=== PATIENT | female | born 1945 | race Caucasian/White ===

== ENCOUNTER → 2016-07-24 | Outpatient (CLI) | payer MEDICARE, OTHER ==
[~2016-07-24] MED LIST: ANTIHISTAMINE25 MG PO; ARTHROTEC PO; ASPIR-LOW81 MG PO; ASPIRIN 32325 MG/TAB PO; ASPIRIN E.C. 8181 MG PO; BYSTOLIC5 MG PO; CINNAMON PO; COREG 6.256.25 MG/TA PO; COREG6.25 MG PO; COZAAR 50MG50 MG/TAB PO; DIOVAN40 MG PO; GLUCOPHAGE XR500 M1 PO; MAGNESIUM PO; MULTIPLE VITAMI1 CAP PO; MVI PO; PAXIL PO; PAXIL40 MG PO; PROTONIX 40MG T40 MG PO; SINGULAIR 110 MG/TAB PO; VALTREX PO; XANAX 0.5MG0.5 MG PO; XANAX0.5 MG PO; ZOCOR 20MG20 MG PO; ZYRTEC 10MG10 MG PO; [UNRECOGNIZED DRUG - REMARK] PO
== END ==
LOC: MC.RAD 12:58
DX: Z12.31 Encounter for screening mammogram for malignant neoplasm of breast (principal)

== ENCOUNTER → 2016-07-29 | Outpatient (CLI) | payer MEDICARE, OTHER | LOC: MC.RAD 12:32 | DX: Z12.31 Encounter for screening mammogram for malignant neoplasm of breast (principal) ==

== ENCOUNTER → 2017-09-03 | Outpatient (CLI) | payer MEDICARE, OTHER | LOC: MC.RAD 12:05 | DX: Z12.31 Encounter for screening mammogram for malignant neoplasm of breast (principal) ==

== ENCOUNTER → 2018-10-12 | Outpatient (CLI) | payer MEDICARE, OTHER | LOC: MC.RAD 13:39 | DX: Z12.31 Encounter for screening mammogram for malignant neoplasm of breast (principal) ==

== ENCOUNTER → 2019-10-17 | Outpatient (CLI) | payer MEDICARE, OTHER | LOC: MC.RAD 09:37 | DX: Z12.31 Encounter for screening mammogram for malignant neoplasm of breast (principal) ==

== ENCOUNTER → 2020-11-27 | Outpatient (CLI) | payer MEDICARE, OTHER | LOC: MC.RAD 13:12 | DX: Z12.31 Encounter for screening mammogram for malignant neoplasm of breast (principal) ==

== ENCOUNTER 2021-03-21 05:56 | Day surgery (SDC) | payer MEDICARE, OTHER ==
[~2021-03-21] VITALS: Ht 160 cm; Wt 66.7 kg
--- NOTE | 2021-03-21 06:10 | NUR ---
63 year old patient admitted to endo bay #1 via ambulation. Patient is alert and oriented x3. Procedure verified and consent signed. First and last name + verified with the patient. Medications and HX reviewed. Physical assessment completed. , Timo is present and states he will remain in the endo bay. IV started in R hand on first attempt with 22G. IVF scanned and are infusing without difficulty. Patient changed into a clean gown and used the bathroom twice before being taken back by CHACORTA Gordon. Patient has a warm blanket and non-slip socks on. Report gien to CHACORTA Gordon.
[2021-03-21] MEDS ORDERED: LIPITOR 40MG TA40 MG PO (06:26)
[2021-03-21] MEDS ORDERED: OSCAL 500 TAB500 MG PO (06:27)
[2021-03-21] MEDS ORDERED: VITAMIN D31000 I1 PO (06:27)
[2021-03-21] MEDS ORDERED: CLARITIN 1010 MG/TAB PO (06:28)
[2021-03-21] MEDS ORDERED: HYZAAR 25 MG-101 TAB PO (06:29)
[2021-03-21] MEDS ORDERED: MAGNESIUM250 M1 PO (06:29)
[2021-03-21] MEDS ORDERED: TOPROL XL 50MG50 MG PO (06:30)
[2021-03-21] MEDS ORDERED: PAXIL40 MG PO (06:32)
[2021-03-21] MEDS ORDERED: APOAEQUORIN PO (06:33)
[2021-03-21] MEDS ORDERED: DESYREL 50MG50 MG PO (06:34)
[2021-03-21] MEDS ORDERED: VALTREX1 GM PO (06:35)
[2021-03-21 07:43] VITALS: BP 107/67; PULSE 64; TEMP 97.6
[2021-03-21 07:52] VITALS: BP 111/74; PULSE 62; TEMP 97.7
[2021-03-21 07:58] VITALS: BP 111/74; PULSE 62
[2021-03-21 08:13] VITALS: BP 135/72; PULSE 61
--- NOTE | 2021-03-21 08:29 | NUR ---
Patient returned to bay 1 from endo procedure. Patient drowsy but arousable to voice. at bedside. Report received from CHACORTA Braxton. Patient doing well. Requesting toast and apple juice. 0750: Dr. Keyes in to see patient. 0753: blood sugar checked prior to eating. 0810: Patient alert and awake. Denies pain or nausea. Vital signs stable. Went through discharge instructions with patient and . Questions answered. Verbalized understanding to education. IV removed without complications. Patient got dressed independently. Patient escorted to patient entrance via wheelchair. Patient got into personal vehicle and left in the care of her .
== END 2021-03-21 08:20 | disposition home or self-care (01) ==
LOC: SDCO 05:56
DX: Z12.11 Encounter for screening for malignant neoplasm of colon (principal); D12.5 Benign neoplasm of sigmoid colon; I10 Essential (primary) hypertension; I42.8 Other cardiomyopathies; E78.5 Hyperlipidemia, unspecified; J30.9 Allergic rhinitis, unspecified; E11.9 Type 2 diabetes mellitus without complications; K21.9 Gastro-esophageal reflux disease without esophagitis; M19.90 Unspecified osteoarthritis, unspecified site; Z79.82 Long term (current) use of aspirin; Z79.899 Other long term (current) drug therapy; Z79.84 Long term (current) use of oral hypoglycemic drugs
CPT/HCPCS: J2704; J7030

== ENCOUNTER → 2023-03-12 | Outpatient (CLI) | payer MEDICARE ==
[~2023-03-12] MED LIST changes: +APOAEQUORIN PO; +CLARITIN 1010 MG/TAB PO; +DESYREL 50MG50 MG PO; +HYZAAR 25 MG-101 TAB PO; +LIPITOR 40MG TA40 MG PO; +MAGNESIUM250 M1 PO; +OSCAL 500 TAB500 MG PO; +TOPROL XL 50MG50 MG PO; +VALTREX1 GM PO; +VITAMIN D31000 I1 PO
== END ==
LOC: MC.RAD 11:21
DX: Z12.31 Encounter for screening mammogram for malignant neoplasm of breast (principal)